=== PATIENT | female | born 1970 | race Caucasian/White ===

== ENCOUNTER 2019-01-25 17:22 | Emergency (ER) | payer SELFPAY ==
[~2019-01-25] VITALS: Ht 160 cm; Wt 100.0 kg
[~2019-01-25 17:22] MED LIST: NOCURR
[2019-01-25] MEDS ORDERED: GUAI100S72 PO (17:46)
[2019-01-25] MEDS ORDERED: BENZONATATE 100 MG CAPSULE PO ONE (20:00)
[2019-01-25 21:25] VITALS: BP 135/90
== END 2019-01-25 21:26 | disposition home or self-care (01) ==
LOC: EMS 17:27
DX: J30.9 Allergic rhinitis, unspecified (principal)

== ENCOUNTER 2019-08-13 12:13 | Emergency (ER) | payer MEDICAID ==
[~2019-08-13] VITALS: Ht 162.6 cm; Wt 103.0 kg
[~2019-08-13 12:13] MED LIST changes: +GUAI100S72 PO; -NOCURR
[2019-08-13] MEDS ORDERED: DIPH25TA51 PO (12:23)
[2019-08-13 14:31] VITALS: BP 138/88
== END 2019-08-13 14:26 | disposition home or self-care (01) ==
LOC: EMS 12:15
DX: J45.909 Unspecified asthma, uncomplicated (principal); R05 Cough; R07.9 Chest pain, unspecified; Z20.828 Contact with and (suspected) exposure to other viral communicable diseases
CPT/HCPCS: 71046; 99284; U0003